=== PATIENT | female | born 1960 | race Caucasian/White ===

== ENCOUNTER 2019-05-19 | Emergency (ER) | payer OTHER, BC ==
[2019-05-19] MEDS ORDERED: TOPROL XL25 MG PO (14:54)
[2019-05-19] MEDS ORDERED: ATORVASTATIN CA80 MG PO (14:54)
== END 2019-05-19 15:20 | disposition home or self-care (01) | DRG 563 ==
DX: S39.012A Strain of muscle, fascia and tendon of lower back, initial encounter (principal); S29.012A Strain of muscle and tendon of back wall of thorax, initial encounter; I10 Essential (primary) hypertension; F17.200 Nicotine dependence, unspecified, uncomplicated; V86.65XA Passenger of 3- or 4- wheeled all-terrain vehicle (ATV) injured in nontraffic accident, initial encounter; Y93.89 Activity, other specified; Y92.74 Orchard as the place of occurrence of the external cause; Y99.0 Civilian activity done for income or pay